=== PATIENT | female | born 1990 | race American Indian/Alaskan Native ===

== ENCOUNTER 2018-02-21 13:15 | Emergency (ER) | payer OTHER ==
[2018-02-21] MEDS ORDERED: TYLENOL ONE (14:35)
[2018-02-21] MEDS ORDERED: TYLENOL PO ONE (14:49)
[2018-02-21] MEDS ORDERED: MOTRIN PO ONE ×2 (21:00→21:02)
[2018-02-21 21:14] LABS: Basophils % (Auto) 0.6 % (0.0-1.8); Eosinophils % (Auto) 0.3 % (0.0-4.3); Hemoglobin 12.7 gm/dl (10.1-14.3); Lymphocytes # (Auto) 0.7 K/mm3 (1.2-5.4); Lymphocytes % (Auto) 8.7 % (13.4-35.0); Mean Corpuscular HGB Conc 33 % (30-34); Mean Corpuscular Hemoglobin 32 pg (28-32); Mean Corpuscular Volume 95 fl (79-97); Monocytes # (Auto) 0.5 K/mm3 (0.0-0.8); Monocytes % (Auto) 5.6 % (0.0-7.3); Platelet Count 340 K/mm3 (140-440); Red Blood Count 3.98 M/mm3 (3.65-5.03); Red Cell Distribution Width 13.2 % (13.2-15.2)
--- NOTE | 2018-02-21 21:17 | Emergency Department Report ---
ED General Adult HPI - General Chief complaint: Upper Respiratory Infection Stated complaint: CHEST PAIN/COUGH Time Seen by Provider: 02/21/18 20:43 Source: patient Mode of arrival: Ambulatory Limitations: No Limitations - History of Present Illness Initial comments: 27-year-old -[place] female comes in complaining of chest pain and productive cough 2 days after smoking marijuana. She reports she had a low- grade fever productive cough of yellow sputum and shortness of breathing. Patient reports she has a history of asthma last attack was 2 years ago. Patient denies any cancers, any chemotherapy, she is not on methotrexate or immune compromised. Patient reports she is not taking any medications at this time has no known drug allergies. -: days(s) (2) Location: chest Severity scale (0 -10): 10 - Related Data Previous Rx's Medication Instructions Recorded Last Taken Type Albuterol Sulfate [Ventolin HFA] 2 puff IH Q4H PRN #1 hfa.aer.ad 07/12/13 Unknown Rx Azithromycin [Zithromax Z-RAUL] 250 mg PO DAILY #6 tab 07/12/13 Unknown Rx Prednisone 40 mg PO QDAY #10 tablet 07/12/13 Unknown Rx Promethazine /Codeine 5 ml PO Q6H PRN #80 ml 07/12/13 Unknown Rx [Phenergan/Codeine 6.25-10 mg/5 ml] ALBUTEROL Inhaler [ProAir HFA 2 puff IH QID PRN #1 inhalation 02/22/18 Unknown Rx Inhaler] Allergies Allergy/AdvReac Type Severity Reaction Status Date / Time No Known Allergies Allergy Verified 12/06/13 18:19 ED Review of Systems ROS: Stated complaint: CHEST PAIN/COUGH Other details as noted in HPI ED Past Medical Hx - Past Medical History Hx Asthma: Yes - Social History Smoking Status: Never Smoker Substance Use Type: Marijuana - Medications Home Medications: Home Medications Medication Instructions Recorded Confirmed Last Taken Type Albuterol Sulfate [Ventolin HFA] 2 puff IH Q4H PRN #1 hfa.aer.ad 07/12/13 Unknown Rx Azithromycin [Zithromax Z-RAUL] 250 mg PO DAILY #6 tab 07/12/13 Unknown Rx Prednisone 40 mg PO QDAY #10 tablet 07/12/13 Unknown Rx Promethazine /Codeine 5 ml PO Q6H PRN #80 ml 07/12/13 Unknown Rx [Phenergan/Codeine 6.25-10 mg/5 ml] ALBUTEROL Inhaler [ProAir HFA 2 puff IH QID PRN #1 inhalation 02/22/18 Unknown Rx Inhaler] ED Physical Exam - General Limitations: No Limitations General appearance: alert, in no apparent distress - Head Head exam: Present: atraumatic, normocephalic - Eye Eye exam: Present: normal appearance - ENT ENT exam: Present: mucous membranes moist - Neck Neck exam: Present: normal inspection - Respiratory Respiratory exam: Present: normal lung sounds bilaterally. Absent: respiratory distress - Cardiovascular Cardiovascular Exam: Present: regular rate, normal rhythm. Absent: systolic murmur, diastolic murmur, rubs, gallop - GI/Abdominal GI/Abdominal exam: Present: soft, normal bowel sounds - Extremities Exam Extremities exam: Present: normal inspection - Back Exam Back exam: Present: normal inspection - Neurological Exam Neurological exam: Present: alert, oriented X3 - Psychiatric Psychiatric exam: Present: normal affect, normal mood - Skin Skin exam: Present: warm, dry, intact, normal color. Absent: rash ED Course Vital Signs 02/21/18 02/21/18 02/22/18 14:46 21:04 00:38 Temperature 99.9 F H 101.8 F H 99.7 F H Pulse Rate 104 H 117 H 88 Respiratory 16 20 17 Rate Blood Pressure 102/78 Blood Pressure 109/63 101/60 [Right] O2 Sat by Pulse 96 99 100 Oximetry 02/22/18 02:10 Temperature 98.9 F Pulse Rate 89 Respiratory 17 Rate Blood Pressure Blood Pressure 127/69 [Right] O2 Sat by Pulse 100 Oximetry ED Medical Decision Making - Lab Data Result diagrams: 02/21/18 21:03 02/21/18 21:03 - Medical Decision Making Patient has been evaluated by this provider fast track. When this provider same this patient she met sepsis protocol. Chest x-ray normal no elevated white count port score 1. Will discharge patient to follow up outpatient with her primary care provider. Patient has been treated with Levaquin and Rocephin by in the emergency room. As well as had fluids. Patient reports that she feels much better. Discussed the patient did not smoke any cannabis. She needs to seek mental health if she feels stressed out. Patient is afebrile. Critical care attestation.: If time is entered above; I have spent that time in minutes in the direct care of this critically ill patient, excluding procedure time. ED Disposition Clinical Impression: Bronchitis Disposition: [id number] TO HOME OR SELFCARE Is pt being admited?: No Does the pt Need Aspirin: No Condition: Stable Instructions: Chronic Bronchitis (ED) Additional Instructions: Please follow up with her primary care provider for continuing care. These did not smoke any marijuana. You can take Tylenol or Motrin for fever control. Prescriptions: ALBUTEROL Inhaler [ProAir HFA Inhaler] 2 puff IH QID PRN #1 inhalation PRN Reason: Shortness Of Breath Referrals: PRIMARY CARE, [Primary Care Provider] - 3-5 Days [facility] [Provider Group] - 3-5 Days Forms: Work/School Release Form(ED)
[2018-02-21] MEDS ORDERED: ROCEPHIN/NS 2 GM/100 ML 2 GM/100 ML BAG IV ONE (21:18)
[2018-02-21] MEDS ORDERED: LEVAQUIN 500MG/100ML 500 MG/100 ML BAG IV ONE (21:18)
[2018-02-21] MEDS ORDERED: NACL 0.9% IV ONE (21:19)
[2018-02-21 21:26] LABS: Partial Thromboplastin Time 27.5 Sec. (24.2-36.6)
[2018-02-21 21:30] LABS: Alanine Aminotransferase 11 units/L (7-56); Albumin 4.4 g/dL (3.9-5); BUN/Creatinine Ratio 9; Blood Urea Nitrogen 6 mg/dL (7-17); Calcium 9.3 mg/dL (8.4-10.2); Hemolysis Index 3
[2018-02-21] MEDS ORDERED: cefTRIAXone 2 GM in NACL 0.9% 20 ML IV ONE (22:30)
--- NOTE | 2018-02-21 22:35 | XRay Report ---
FINAL REPORT EXAM: XR CHEST ROUTINE 2V HISTORY: chest pain, cough, tachycardic low-grade fever for TECHNIQUE: 2 views of the chest. PRIORS: None. FINDINGS: The cardiomediastinal silhouette appears normal. The lungs are clear. The bones and soft tissues are unremarkable. IMPRESSION: No evidence of acute cardiopulmonary disease
[2018-02-22 01:32] LABS: HCG Qualitative,Urine Negative (Negative)
[2018-02-22 01:45] LABS: Bacteria,Urine 1+ /HPF (Negative); Bilirubin,Urine NEG (Negative); Blood,Urine MOD (Negative); Color,Urine Yellow (Yellow); Mucus,Urine FEW /HPF; Protein,Urine <15 mg/dL mg/dL (Negative); Urobilinogen,Urine < 2.0 mg/dL (<2.0)
[2018-02-22 02:20] VITALS: BP 127/69
== END 2018-02-22 02:15 | disposition home or self-care (01) ==
LOC: ED 13:15
DX: J40 Bronchitis, not specified as acute or chronic (principal); F12.10 Cannabis abuse, uncomplicated
CPT/HCPCS: 36415; 71046; 80053; 81001; 81025; 82140; 82550; 84484; 85025; 85379; 85730; 86850; 86900; 86901; 87040; 87086; 87400; 93005; 93010; 96365; 96367; 99284; J0696; J1956; J7030